=== PATIENT | female | born 1980 | race Caucasian/White ===

== ENCOUNTER 2022-10-08 17:51 | Emergency (ER) | payer BC ==
[~2022-10-08] VITALS: Ht 175.3 cm; Wt 89.4 kg
[2022-10-08] MEDS ORDERED: SILVER SULFADIAZINE 50GM CREAM TOP STA (17:59)
[2022-10-08] MEDS ORDERED: HYDROCODONE/APAP 10MG-325MG TAB PO ONE (18:00)
[2022-10-08] MEDS ORDERED: DIPHTH/TETANUS/ACEL. PERTUSSIS 0.5 ML SYR IM ONE (18:00)
[2022-10-08] MEDS ORDERED: CIPROFLOXACIN 500 MG TAB PO SCH (18:00)
[2022-10-08] MEDS ORDERED: HYDROCODON-ACE1 EAC9 PO (18:03)
[2022-10-08] MEDS ORDERED: CIPRO500 MG PO (18:24)
[2022-10-08] MEDS ORDERED: TETANUS/DIPHTHERIA TOX ADULT 0.5 ML SYR ONE (18:30)
== END 2022-10-08 18:37 | disposition home or self-care (01) ==
LOC: ER 18:04
DX: T24.211A Burn of second degree of right thigh, initial encounter (principal); T25.221A Burn of second degree of right foot, initial encounter; X12.XXXA Contact with other hot fluids, initial encounter; Y92.89 Other specified places as the place of occurrence of the external cause; E11.9 Type 2 diabetes mellitus without complications
CPT/HCPCS: 90714; 99283